=== PATIENT | female | born 1955 | race Caucasian/White ===

== ENCOUNTER → 2016-10-10 | Outpatient (CLI) | payer BC ==
--- NOTE | 2016-10-13 08:43 | BD ---
EXAMINATION TYPE: MG DEXA axial skeleton. DATE OF EXAM: 10/10/2016 3:04 PM COMPARISON: 09.26.2014 CLINICAL HISTORY: M85.80 KNOWN OSTEOPENIA Height: 62.5 Weight: 130 FRAX RISK QUESTIONS: Alcohol (3 or more units per day): NO Family History (Parent hip fracture): YES, BUT NO BROKEN BONES A RESULT Glucocorticoids (More than 3mos): NO (Ex: prednisone, prednisolone, methylprednisolone, dexamethasone, and hydrocortisone). History of Fracture in Adulthood: NO Secondary Osteoporosis: KNOWN OSTEOPENIA 1. Type 1 Diabetes: NO 2. Hyperthyroidism: NO 3. Menopause before 45: NO 4. Malnutrition: NO 5. Chronic liver disease: NO Rheumatoid Arthritis: NO Current Tobacco Use: NO RISK FACTORS HISTORY OF: Family History of Osteoporosis: YES, HER MOTHER, AND MATERNAL AUNT, NO BROKEN HIPS Drink Alcohol: SOCIAL Active: YES Diet low in dairy products/other sources of calcium: NO Postmenopausal woman: YES AT 52 YRS OLD Take estrogen and/or progesterone medications: YES, PREMPRO FOR APROX 1 YR How lon Adrenal Insufficiency: NO MEDICATIONS: Prednisone or other steroids: PREDNISONE X2 DOSE PACS, LAST MONTH How Lon [place] Additional Medications: VIT D, MULTIVITAMIN, Additional History: NOTHING TO NOTE EXAM MEASUREMENTS: Bone mineral densitometry was performed using the [employer] System. Bone mineral density as measured about the Lumbar spine is: ----- L1-L4(G/cm2): 1.163 T Score Values are as follows: ----- L1: -0.7 ----- L2: -0.9 ----- L3: -0.3 ----- L4: 1.0 ----- L1-L4: -0.1 Bone mineral density has: Increased 0.7% since study of: 09.26.2014 Bone mineral density about the R hip (g/cm2): 0.915 Bone mineral density about the L hip (g/cm2): 0.857 T Score values are as follows: -----R Neck: -0.9 -----L Neck: -1.3 -----R Intertrochanter: -1.5 -----L Intertrochanter: -1.1 Bone mineral density has: Decreased -8.4% since study of: 09.26.2014 FRAX%'S: FOR MAJOR OSTEOPOROTIC FX: 7.3%.... FOR HIP FX: 0.4% PROBABILITY OF FX IN 10 YRS T JOSSE IMPRESSION: Osteopenia (T Score between -2.5 and -1 as noted by T score values There is slightly increased risk of fracture and the patient may be considered for treatment. Re-Screen 1-2 years. FOR BOTH OF HER HIPS ONLY NOTE: T-SCORE=SD OF THE YOUNG ADULT MEAN.
--- NOTE | 2016-10-13 08:56 | MM ---
Reason for exam: screening (asymptomatic). Last mammogram was performed 2 years ago. History: Patient is postmenopausal and had first child at age 30. Family history of breast cancer in maternal aunt. Took progesterone for 1 year. Physical Findings: A clinical breast exam by your physician is recommended on an annual basis and results should be correlated with mammographic findings. MG Screening Mammo w CAD Bilateral CC and MLO view(s) were taken. Prior study comparison: September 26, 2014, bilateral MG screening mammo w CAD. August 18, 2012, bilateral digital screening mammo w/CAD. The breast tissue is heterogeneously dense. This may lower the sensitivity of mammography. There is no discrete abnormality. No significant changes when compared with prior studies. ASSESSMENT: Negative, BI-RAD 1 RECOMMENDATION: Routine screening mammogram of both breasts in 1 year.
== END | disposition home or self-care (01) ==
LOC: RADMAMWWP 14:00
PROVIDERS: ATTEND Obstetrics & Gynecology
DX: Z12.31 Encounter for screening mammogram for malignant neoplasm of breast (principal); M85.852 Other specified disorders of bone density and structure, left thigh; M85.851 Other specified disorders of bone density and structure, right thigh
CPT/HCPCS: 77080; G0202

== ENCOUNTER → 2018-07-21 | Outpatient (CLI) | payer BC ==
--- NOTE | 2018-07-22 11:11 | MM ---
Reason for exam: screening (asymptomatic). Last mammogram was performed 1 year and 9 months ago. History: Patient is postmenopausal and had first child at age 30. Family history of breast cancer in maternal aunt. Took progesterone for 1 year. Physical Findings: A clinical breast exam by your physician is recommended on an annual basis and results should be correlated with mammographic findings. MG Screening Mammo w CAD Bilateral CC and MLO view(s) were taken. XCCL view(s) were taken of the right breast. Prior study comparison: October 10, 2016, bilateral MG screening mammo w CAD. September 26, 2014, bilateral MG screening mammo w CAD. There are scattered fibroglandular densities. Benign calcifications. No suspicious abnormality. No significant changes when compared with prior studies. ASSESSMENT: Benign, BI-RAD 2 RECOMMENDATION: Routine screening mammogram of both breasts in 1 year.
== END | disposition home or self-care (01) ==
LOC: RADMAMWWP 09:10
PROVIDERS: ATTEND Obstetrics & Gynecology
DX: Z12.31 Encounter for screening mammogram for malignant neoplasm of breast (principal)
CPT/HCPCS: 77067

== ENCOUNTER → 2018-11-16 | Outpatient (CLI) | payer MEDICARE ==
--- NOTE | 2018-11-16 16:52 | BD ---
EXAMINATION TYPE: Axial Bone Density DATE OF EXAM: 11/16/2018 COMPARISON: NONE CLINICAL HISTORY: 63-year-old female disorder bone, postmenopausal screening Height: 5 FT 2 1/2IN Weight: 123 FRAX RISK QUESTIONS: RISK FACTORS HISTORY OF: Family History of Osteoporosis: YES Active: YES Postmenopausal woman: AGE 53 Take estrogen and/or progesterone medications: TOOK FOR 8 YEARS NO LONGER TAKES MEDICATIONS: Additional Medications: NONE Additional History: EXAM MEASUREMENTS: Bone mineral densitometry was performed using the [employer] System. Bone mineral density as measured about the Lumbar spine is: ----- L1-L4(G/cm2): 1.019 T Score Values are as follows: ----- L2: -2.0 ----- L3: -1.5 ----- L4: -0.5 ----- L1-L4: -1.3 Bone mineral density has: DECREASED -12.9 % since study of: 2017 Bone mineral density about the R hip (g/cm2): 0.780 Bone mineral density about the L hip (g/cm2): 0.761 T Score values are as follows: -----R Neck: -1.9 -----L Neck: -2.0 -----R Total: -1.9 -----L Total: -1.8 Bone mineral density has: DECREASED -7.8 % since study of: 2017 IMPRESSION: Osteopenia (T Score between -2.5 and -1). There is slightly increased risk of fracture and the patient may be considered for treatment. Re-Screen 2-5 years. NOTE: T-SCORE=SD OF THE YOUNG ADULT MEAN.
== END | disposition home or self-care (01) ==
LOC: RADBDWWP 14:11
PROVIDERS: ATTEND Obstetrics & Gynecology
DX: M85.851 Other specified disorders of bone density and structure, right thigh (principal); M85.852 Other specified disorders of bone density and structure, left thigh; M85.88 Other specified disorders of bone density and structure, other site
CPT/HCPCS: 77080

== ENCOUNTER → 2021-10-18 | Outpatient (CLI) | payer MEDICARE ==
--- NOTE | 2021-10-18 15:17 | XR ---
EXAMINATION TYPE: XR chest 2V DATE OF EXAM: 10/18/2021 COMPARISON: None INDICATION: Chest heaviness chest pain TECHNIQUE: Frontal and lateral views of the chest are obtained. FINDINGS: The heart size is normal. The pulmonary vasculature is normal. The lungs are clear. IMPRESSION: 1. No acute pulmonary process.
== END | disposition home or self-care (01) ==
LOC: RADXRMAIN 11:41
PROVIDERS: ATTEND Family Medicine
DX: R07.89 Other chest pain (principal)
CPT/HCPCS: 71046

== ENCOUNTER → 2021-11-14 | Outpatient (CLI) | payer MEDICARE ==
--- NOTE | 2021-11-15 14:11 | MM ---
Reason for exam: screening (asymptomatic). Last mammogram was performed 3 years and 4 months ago. History: Patient is postmenopausal and had first child at age 30. Family history of breast cancer in maternal aunt. Took progesterone for 1 year. Physical Findings: A clinical breast exam by your physician is recommended on an annual basis and results should be correlated with mammographic findings. MG 3D Screening Mammo W/Cad Bilateral CC, MLO, and XCCL view(s) were taken. Prior study comparison: July 21, 2018, bilateral MG screening mammo w CAD. October 10, 2016, bilateral MG screening mammo w CAD. There are scattered fibroglandular densities. No significant changes when compared with prior studies. ASSESSMENT: Negative, BI-RAD 1 RECOMMENDATION: Routine screening mammogram of both breasts in 1 year.
== END | disposition home or self-care (01) ==
LOC: RADMAMWWP 08:27
PROVIDERS: ATTEND Family Medicine
DX: Z12.31 Encounter for screening mammogram for malignant neoplasm of breast (principal); Z78.0 Asymptomatic menopausal state; Z80.3 Family history of malignant neoplasm of breast
CPT/HCPCS: 77063; 77067

== ENCOUNTER 2023-06-09 08:09 | Day surgery (SDC) | payer MEDICARE ==
[2023-06-04 14:27] VITALS: BMI 21.4
[~2023-06-09 08:09] MED LIST: LACTATED RINGERS 1,000 ML IV SCH; LIDOCAINE 1% (10MG/ML) FOR IV START INTRADERMA PRN
[2023-06-09 08:53] VITALS: TEMP 99
[2023-06-09] MEDS ORDERED: PROPOFOL 10 MG/ML 20 ML VIAL IV ONE (09:16)
[2023-06-09] MEDS ORDERED: LIDOCAINE 2% INJ 20 MG/ML (2 ML VIAL) ONE (09:16)
--- NOTE | 2023-06-09 09:25 | P.PCN ---
Date of Procedure: 06/09/23 Procedure(s) Performed: BRIEF HISTORY: Patient is a 67-year-old, pleasant, white female scheduled for an upper endoscopy as a part of evaluation of iron deficiency anemia. She does complain of occasional heartburn and intermittent dysphagia to solids. She denies any rectal bleeding or melena. PROCEDURE PERFORMED: Esophagogastroduodenoscopy with biopsy. PREOPERATIVE DIAGNOSIS: Iron deficiency anemia/GERD/dysphagia. IV sedation per anesthesia. PROCEDURE: After informed consent was obtained, the patient was brought into the endoscopy unit. IV sedation was administered by Anesthesia under continuous monitoring. Initially the Olympus GIF-140 video endoscope was inserted into the mouth. Esophagus intubated without any difficulty. It was gradually advanced into the stomach and duodenum and carefully examined. The bulb and the second part of the duodenum appeared normal. Biopsies were done from the duodenum to rule out celiac disease. The scope at this time was withdrawn to the stomach, adequately insufflated with air, and upon careful examination, mucosa of the antrum, had few erosions and biopsies were done from this area. Mucosa of the body, cardia and the fundus appeared normal. The scope was then withdrawn into the esophagus. Small hiatal hernia noted. The GE junction was located at 37 cm from the incisors. There was short segment of Donnelly's esophagus extending 3-4 mm proximal GE junction which was biopsied. The rest of the esophagus appeared normal. There were no erosions or ulcerations seen and the patient tolerated the procedure well. IMPRESSION: 1. Mild antral gastritis 2. 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 RECOMMENDATIONS: The findings of this examination were discussed with the patient as well as a family. She was advised to follow with the biopsy results. If the biopsy confirms the presence of Donnelly's esophagus she can have a repeat upper endoscopy in 3 years.
[2023-06-09 09:53] VITALS: BP 124/77; PULSE 69; RESP 15
== END 2023-06-09 10:01 | disposition home or self-care (01) ==
LOC: ORWHC2ENDO 08:09
PROVIDERS: ATTEND Internal Medicine Gastroenterology
DX: K29.50 Unspecified chronic gastritis without bleeding (principal); K22.70 Barrett's esophagus without dysplasia; K21.00 Gastro-esophageal reflux disease with esophagitis, without bleeding; D50.9 Iron deficiency anemia, unspecified; K44.9 Diaphragmatic hernia without obstruction or gangrene; Z79.899 Other long term (current) drug therapy; Z98.890 Other specified postprocedural states; Z98.41 Cataract extraction status, right eye; Z98.42 Cataract extraction status, left eye
CPT/HCPCS: 88305; 43239; J2704; J2001

== ENCOUNTER → 2023-08-13 | Outpatient (CLI) | payer MEDICARE ==
--- NOTE | 2023-08-17 06:34 | MM ---
Reason for Exam: Screening (asymptomatic). Last mammogram was performed 1 year(s) and 9 month(s) ago. Patient History: Menarche at age 14. First Full-Term at age 30. Late child-bearing (after 30). Postmenopausal. Progesterone for 1 year until age 1. Maternal aunt had breast cancer, age 60. Risk Values: Wanda 5 year model risk: 2.2%. NCI Lifetime model risk: 6.3%. Prior Study Comparison: 10/10/2016 Bilateral Screening Mammogram, [facility]. 07/21/2018 Bilateral Screening Mammogram, [facility]. 11/14/2021 Bilateral Screening Mammogram, [facility]. Tissue Density: There are scattered fibroglandular densities. Findings: Analyzed By CAD. There is no suspicious group of microcalcifications or new suspicious mass in either breast. Overall Assessment: Negative, BI-RAD 1 Management: Screening Mammogram of both breasts in 1 year. . Patient should continue monthly self-breast exams. A clinical breast exam by your physician is recommended on an annual basis. This exam should not preclude additional follow-up of suspicious palpable abnormalities. Note on Wanda scores and lifetime risk: 1. A Wanda score greater than 3% is considered moderate risk. If this is the case, consider specialist referral to assess eligibility for a risk reducing agent. 2. If overall lifetime risk for the development of breast cancer is 20% or higher, the patient may qualify for future screening with alternating mammogram and breast MRI. Electronically signed and approved by: Dwaine Raza M.D. Radiologist
== END | disposition home or self-care (01) ==
LOC: RADMAMWWP 12:16
PROVIDERS: ATTEND Family Medicine
DX: Z12.31 Encounter for screening mammogram for malignant neoplasm of breast (principal); Z78.0 Asymptomatic menopausal state; Z80.3 Family history of malignant neoplasm of breast
CPT/HCPCS: 77063; 77067

== ENCOUNTER 2023-10-02 10:42 | Day surgery (SDC) | payer MEDICARE ==
[2023-09-30 09:40] VITALS: BMI 21.7
[2023-10-02] MEDS: LACTATED RINGERS 1,000 ML IV SCH ×2 (10:52→12:08)
[2023-10-02] MEDS ORDERED: ONDANSETRON 4 MG/2 ML VIAL ONE (11:01)
[2023-10-02 11:09] VITALS: TEMP 98.5
[2023-10-02] MEDS ORDERED: ONDANSETRON 4 MG/2 ML VIAL IVP ONE (11:10)
[2023-10-02] MEDS ORDERED: PROPOFOL 10 MG/ML 20 ML VIAL IV ONE (12:10)
--- NOTE | 2023-10-02 12:26 | P.PCN ---
Date of Procedure: 10/02/23 Procedure(s) Performed: BRIEF HISTORY: Patient is a 68-year-old pleasant female scheduled for an elective colonoscopy as a part of evaluation of iron deficiency anemia. PROCEDURE PERFORMED: Colonoscopy with argon plasma coagulation. PREOPERATIVE DIAGNOSIS: Iron deficiency anemia. IV sedation per Anesthesia. PROCEDURE: After informed consent was obtained, the patient, was brought into the endoscopy unit. IV sedation was administered by Anesthesia under continuous monitoring. Digital rectal examination was normal. Initially the Olympus CF-160 flexible video colonoscope was then inserted in the rectum, gradually advanced into the cecum without any difficulty. Careful examination was performed as the scope was gradually being withdrawn. Ileocecal valve and the appendiceal orifice were visualized and appeared normal. Prep was excellent. Mucosa of the cecum had for nonbleeding arterial venous malformation measuring between 5 mm to 1 cm in size status post argon coagulation. Because of the, ascending colon, transverse colon, descending colon, sigmoid colon, and rectum appeared normal. Scattered sigmoid diverticulosis Retroflexion was performed in the rectum and no lesions were seen. The patient tolerated the procedure well. 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 She was advised to continue with iron supplements and monitor CBC periodically. If she has recurrent iron deficiency anemia despite being on iron supplements, she was advised to follow up in office
[2023-10-02 12:47] VITALS: BP 100/64; PULSE 82; RESP 16
== END 2023-10-02 13:13 | disposition home or self-care (01) ==
LOC: ORWHC2ENDO 10:42
PROVIDERS: ATTEND Internal Medicine Gastroenterology
DX: D50.9 Iron deficiency anemia, unspecified (principal); Q27.30 Arteriovenous malformation, site unspecified
CPT/HCPCS: 45382; J2405; J2704

== ENCOUNTER → 2024-03-11 | Outpatient (CLI) | payer MEDICARE ==
--- NOTE | 2024-03-12 14:45 | CA ---
Transthoracic Echo Report Name: Tamika Kevin Age: 68 Gender: F : 1955 Exam Date: 03/11/2024 14:43 Exam Location: [facility] Ht (in): 62 Wt (lb): 117 Ordering Physician: Lazaro Vogel DO Attending/Referring Phys: Solange Gallagher [facility] Environmental Planner Lyla Pa RDCS Procedure CPT: Indications: R01.1 CARDIAC MURMUR, UNSPECIFIED Cardiac Hx: Technical Quality: Fair Contrast 1: Total Dose (mL): Contrast 2: Total Dose (mL): MEASUREMENTS (Male / Female) Normal Values 2D ECHO LV Diastolic Diameter PLAX 3.3 cm 4.2 - 5.9 / 3.9 - 5.3 cm LV Systolic Diameter PLAX 1.4 cm IVS Diastolic Thickness 1.1 cm 0.6 - 1.0 / 0.6 - 0.9 cm LVPW Diastolic Thickness 1.0 cm 0.6 - 1.0 / 0.6 - 0.9 cm LV Relative Wall Thickness 0.6 RV Internal Dim ED PLAX 3.1 cm LVOT Diameter 1.7 cm LA Volume 56.4 cm??? 18 - 58 / 22 - 52 cm??? LA Volume Index 36.9 cm???/m??? 16 - 28 cm???/m??? M-MODE Aortic Root Diameter MM 2.7 cm LA Systolic Diameter MM 3.5 cm LA Ao Ratio MM 1.3 AV Cusp Separation MM 1.9 cm DOPPLER AV Peak Velocity 129.0 cm/s AV Peak Gradient 6.7 mmHg AV Mean Velocity 77.6 cm/s AV Mean Gradient 2.9 mmHg AV Velocity Time Integral 20.4 cm LVOT Peak Velocity 94.0 cm/s LVOT Peak Gradient 3.5 mmHg LVOT Velocity Time Integral 19.0 cm LVOT Stroke Volume 44.9 cm??? LVOT Stroke Volume Index 29.5 ml/m??? LVOT Cardiac Index 2060.8 cm???/min???m??? AV Area Cont Eq vti 2.2 cm??? AV Area Cont Eq pk 1.7 cm??? MV Area PHT 3.0 cm??? MR Peak Velocity 563.4 cm/s MR Peak Gradient 127.0 mmHg MR Flow Rate PISA 36.7 cm???/s Mitral E Point Velocity 71.5 cm/s Mitral A Point Velocity 72.8 cm/s Mitral E to A Ratio 1.0 MV Deceleration Time 256.6 ms MV E' Velocity 8.7 cm/s Mitral E to MV E' Ratio 8.2 TR Peak Velocity 231.1 cm/s TR Peak Gradient 21.4 mmHg Right Ventricular Systolic Press 25.3 mmHg FINDINGS Left Ventricle Mildly increased left ventricular wall thickness. Left ventricular cavity size normal. Normal left ventricular systolic function with no obvious regional wall motion abnormalities. Left ventricular ejection fraction is estimated at 55-60 %. Grade 1 diastolic dysfunction. Right Ventricle Normal right ventricular size and function. Right Atrium Normal right atrial size. Left Atrium Mildly increased left atrial volume. Mitral Valve Structurally normal mitral valve. Mild mitral valve prolapse. Moderate to severe mitral regurgitation. Posteriorly directed mitral regurgitation jet. Aortic Valve Trileaflet aortic valve. No aortic valve stenosis or regurgitation. Tricuspid Valve Structurally normal tricuspid valve. [id number] tricuspid regurgitation. Pulmonic Valve Structurally normal pulmonic valve. Pericardium No pericardial effusion. Aorta Normal size aortic root and proximal ascending aorta. CONCLUSIONS Normal LV systolic function Mitral valve prolapse was moderate to severe mitral regurgitation with a posteriorly directed jet [id number] tricuspid regurgitation Previewed by: Dr. Jose Luis Marley MD (Electronically Signed) Final Date: 12 March 2024 14:44
== END | disposition home or self-care (01) ==
LOC: RADECHMAIN 14:34
PROVIDERS: ATTEND Family Medicine
DX: I08.1 Rheumatic disorders of both mitral and tricuspid valves (principal); R01.1 Cardiac murmur, unspecified
CPT/HCPCS: 93306

== ENCOUNTER → 2024-03-11 | Outpatient (CLI) | payer MEDICARE ==
--- NOTE | 2024-03-11 18:34 | BD ---
EXAMINATION TYPE: Axial Bone Density DATE OF EXAM: 03/11/2024 CLINICAL HISTORY: 68 years old Female. ICD-10 CODE: Z78.0 ASYMP ANNA STATE Height: 63 Weight: 120.1 FRAX RISK QUESTIONS: Alcohol (3 or more units per day): no Family History (Parent hip fracture): no Glucocorticoids (More than 3mos): no (Ex: prednisone, prednisolone, methylprednisolone, dexamethasone, and hydrocortisone). History of Fracture in Adulthood: no Secondary Osteoporosis: 1. Type 1 Diabetes: no 2. Hyperthyroidism: no 3. Menopause before 45: no 4. Malnutrition: no 5. Chronic liver disease: no Rheumatoid Arthritis: no Current Tobacco Use: no RISK FACTORS HISTORY OF: Surgery to Spine/Hip(right/left)/Wrist (right/left): no EXAM MEASUREMENTS: Bone mineral densitometry was performed using the [employer] System. Bone mineral density as measured about the Lumbar spine is: ----- L1-L4(G/cm2): 0.940 T Score Values are as follows: ----- L1: -2.7 ----- L2: -2.4 ----- L3: -1.9 ----- L4: -1.3 ----- L1-L4: -2.0 Z Score Values are as follows: ----- L1: -0.7 ----- L2: -0.4 ----- L3: 0.1 ----- L4: 0.7 ----- L1-L4: 0.0 Bone mineral density has: decreased -5.7 % since study of: 02.04.2022 Bone mineral density about the R hip (g/cm2): 0.700 Bone mineral density about the L hip (g/cm2): 0.698 T Score values are as follows: -----R Neck: -2.0 -----L Neck: -2.0 -----R Total: -2.4 -----L Total: -2.5 Z Score values are as follows: -----R Neck: -0.1 -----L Neck: -0.1 -----R Total: -0.7 -----L Total: -0.7 Bone mineral density has: decreased -2.1 % since study of: 5.3.2021 FRAX%s: The graph provided illustrates a 11.0 % chance for a major osteoporotic fx and a 2.4% chance for the hips probability for fx in 10 years time. IMPRESSION: Osteoporosis (T Score less than -2.5). There is increased fracture risk and therapy is usually indicated based on age. Re-Screen 1-2 years. NOTE: T-SCORE=SD OF THE YOUNG ADULT MEAN.
== END | disposition home or self-care (01) ==
LOC: RADBDWWP 15:09
PROVIDERS: ATTEND Family Medicine
DX: M81.0 Age-related osteoporosis without current pathological fracture (principal); M85.89 Other specified disorders of bone density and structure, multiple sites; Z78.0 Asymptomatic menopausal state
CPT/HCPCS: 77080

== ENCOUNTER → 2024-04-06 | Outpatient (CLI) | payer MEDICARE ==
--- NOTE | 2024-04-06 15:13 | US ---
EXAMINATION TYPE: US thyroid st tissue head/neck DATE OF EXAM: 04/06/2024 COMPARISON: NONE CLINICAL INDICATION: Female, 68 years old with history of E05.90 THYROTOXICOSIS; GLAND SIZE: Right Lobe: 4.6 x 1.5 x 1.1 cm Overall Parenchyma: homogeneous Left Lobe: 4.6 x 1.8 x 1.4 cm Overall Parenchyma: homogeneous Isthmus Thickness: 0.3 cm NODULES RIGHT: # of nodules measured on right: 1 1. 0.7 X 0.5 x 0.7 cm, mid lateral, cystic or almost completely cystic, anechoic nodule, which is w ider than tall, with smooth margins, without echogenic foci. TR 1. LEFT: # of nodules measured on left: 0 ISTHMUS: # of nodules measured in the isthmus: 0 IMPRESSION: Unremarkable thyroid ultrasound with subcentimeter right thyroid cyst.
== END | disposition home or self-care (01) ==
LOC: RADUSWWP 14:47
PROVIDERS: ATTEND Family Medicine
DX: E04.1 Nontoxic single thyroid nodule (principal); E05.90 Thyrotoxicosis, unspecified without thyrotoxic crisis or storm
CPT/HCPCS: 76536

== ENCOUNTER → 2024-05-06 | Outpatient (CLI) | payer MEDICARE ==
--- NOTE | 2024-05-06 09:03 | NM ---
EXAMINATION TYPE: NM thyroid image only DATE OF EXAM: 05/06/2024 COMPARISON: NONE CLINICAL INDICATION: Female, 68 years old with history of E05.90 THYROTOXICOSIS; TECHNIQUE: After the intravenous administration of 10.13 mCi Tc 99m Sodium Pertechnetate. FINDINGS: No evidence of [place]: Nodule. There is decreased distribution radiotracer throughout the thyroid lobe s. Estimated visual thyroid uptake is felt to be within normal limits. IMPRESSION: Normal thyroid scan
== END | disposition home or self-care (01) ==
LOC: RADNMMAIN 07:56
PROVIDERS: ATTEND Family Medicine
DX: E05.90 Thyrotoxicosis, unspecified without thyrotoxic crisis or storm (principal)
CPT/HCPCS: 78013; A9512